=== PATIENT | male | born 1995 | race Two or more races ===

== ENCOUNTER 2017-05-05 14:42 | Emergency (ER) | payer SELFPAY ==
[~2017-05-05] VITALS: Ht 182.9 cm; Wt 86.2 kg
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
[2017-05-05 15:14] VITALS: BP 135/79
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
[2017-05-05] MEDS ORDERED: IBUPROFEN600 MG ORAL (16:07)
[2017-05-05] MEDS ORDERED: ROBAXIN500 MG PO (16:07)
[2017-05-05 16:21] VITALS: BP 133/78
== END 2017-05-05 16:30 | disposition home or self-care (01) ==
LOC: EMR 15:18
DX: M54.2 Cervicalgia (principal); M43.6 Torticollis; V43.62XA Car passenger injured in collision with other type car in traffic accident, initial encounter; Y92.410 Unspecified street and highway as the place of occurrence of the external cause
CPT/HCPCS: 72040; 99283